=== PATIENT | male | born 1950 | race Caucasian/White ===

== ENCOUNTER 2024-07-02 23:09 | Inpatient (IN) | payer MEDICARE, BC ==
[~2024-07-02] VITALS: Ht 175.3 cm; Wt 83.9 kg
[2024-07-02 23:39] LABS: BASOPHILS % (AUTO) 0.4 % (0.0-2.0); EOSINOPHILS # (AUTO) 0.3 K/uL (0.0-0.7); EOSINOPHILS % (AUTO) 3.7 % (0.0-6.0); HEMATOCRIT 46 % (39-51); LYMPHOCYTES # (AUTO) 0.8 K/uL (0.8-4.8); LYMPHOCYTES % (AUTO) 9.3 % (20.0-44.0); MEAN CORPUSCULAR HEMOGLOBIN 33 PG (26.0-33.0); MEAN CORPUSCULAR HGB CONC 35 g/dl (31.0-36.0); MEAN CORPUSCULAR VOLUME 93 fL (80-96); MONOCYTES # (AUTO) 0.6 K/uL (0.1-1.30); MONOCYTES % (AUTO) 7.1 % (2.0-12.0); NEUTROPHILS # (AUTO) 6.5 K/uL (1.8-8.9); NEUTROPHILS % (AUTO) 79.5 % (43.0-81.0); PLATELET COUNT (AUTO) 198 K/uL (150-450); RED BLOOD CELL COUNT(AUTO) 4.91 MIL/uL (4.5-6.0); RED CELL DISTRIBUTION WIDTH 12.1 % (11.5-15.0); WHITE BLOOD COUNT (AUTO) 8.2 K/uL (4.3-11.0)
[2024-07-02] MEDS: IV NS 0.9% 1,000 ML BAG IV ONE (23:47)
[2024-07-02 23:49] LABS: CALCIUM, SERUM 8.5 mg/dL (8.5-10.1); CARBON DIOXIDE 25 mmol/L (21-32); CHLORIDE 95 mmol/L (98-107); CREATININE 1.1 mg/dL (0.6-1.3); GLUCOSE 103 mg/dL (74-106); POTASSIUM 3.8 mmol/L (3.5-5.1); SODIUM SERUM 129 mmol/L (136-145); UREA NITROGEN, BLOOD 14 mg/dL (7-18)
[2024-07-02 23:55] LABS: ALANINE AMINOTRANSFERASE 22 U/L (12-78); ALBUMIN 3.6 g/dL (3.4-5.0); ALKALINE PHOSPHATASE 50 U/L (46-116); ASPARTATE AMINOTRANSFERASE 24 U/L (15-37); BILIRUBIN,DIRECT 0.2 mg/dL (0.0-0.2); BILIRUBIN,TOTAL 0.9 mg/dL (0.2-1.0); TOTAL PROTEIN, SERUM 6.9 g/dL (6.4-8.2)
[2024-07-02] MEDS ORDERED: MINERAL OIL 133 ML (PYXIS) 1 EA ENEMA RC ONE (23:55)
[2024-07-02] MEDS ORDERED: LACTULOSE 10 G/15 ML UDC (PYXIS) ONE (23:56)
[2024-07-03] MEDS: MINERAL OIL 133 ML (PYXIS) 1 EA ENEMA RC ONE (00:11)
[2024-07-03] MEDS: LACTULOSE 10 G/15 ML UDC (PYXIS) PO ONE (00:11)
[2024-07-03] MEDS: POLYETHYLENE GLYCOL 3350 17 GM POWD.PACK ONE (03:31)
[2024-07-03] MEDS: POLYETHYLENE GLYCOL 3350 17 GM POWD.PACK PO ONE (03:31)
[2024-07-03] MEDS ORDERED: DIATR MEGLU/DIATRIZOATE SODIUM 120 ML BOTTLE (GASTROGRAPHIN) ONE (03:42)
[2024-07-03] MEDS ORDERED: MAGNESIUM HYDROXIDE 30 ML UDC PO PRN (04:00)
[2024-07-03] MEDS ORDERED: Z GUARD REMEDY 4 OZ OINT TP PRN (04:00)
[2024-07-03] MEDS ORDERED: ONDANSETRON HCL/PF 4 MG/2 ML VIAL IVP PRN (04:00)
[2024-07-03] MEDS ORDERED: ACETAMINOPHEN 650 MG/SUPP.RECT RC PRN (04:00)
[2024-07-03] MEDS ORDERED: MORPHINE SULFATE INJ 2 MG/ML DISP.SYRIN ONE (04:11)
[2024-07-03] MEDS: MORPHINE SULFATE INJ 2 MG/ML DISP.SYRIN IV PRN (04:18)
[2024-07-03] MEDS: ACETAMINOPHEN 325 MG TABLET PO PRN (05:27)
[2024-07-03] MEDS ORDERED: CARV6.25 PO (05:59)
[2024-07-03] MEDS ORDERED: DOXA4TAB2 PO (06:01)
[2024-07-03] MEDS ORDERED: TADA5TAB2 PO (06:02)
[2024-07-03] MEDS ORDERED: ROSU10TA29 PO (06:05)
[2024-07-03] MEDS ORDERED: LEVO100T PO (06:07)
[2024-07-03] MEDS ORDERED: OLME40TA12 PO (06:09)
[2024-07-03] MEDS ORDERED: ASPI-1169 PO (06:09)
[2024-07-03] MEDS ORDERED: BUDE10.2 INH (06:10)
[2024-07-03] MEDS ORDERED: CARB15DR EACHEYE (06:16)
[2024-07-03] MEDS ORDERED: [UNRECOGNIZED DRUG - OTHER] (06:17)
[2024-07-03] MEDS ORDERED: EVOL140P3 SQ (07:39)
[2024-07-03] MEDS ORDERED: MAGN500C16 PO (07:39)
[2024-07-03 07:54] VITALS: BP 138/77; TEMP 98.2; O2SAT 98
[2024-07-03] MEDS: PANTOPRAZOLE 40 MG TABLET.DR PO SCH (07:59)
[2024-07-03] MEDS: POLYETHYLENE GLYCOL 3350 17 GM POWD.PACK PO PRN (08:39)
[2024-07-03] MEDS: LACTULOSE 10 G/15 ML UDC (PYXIS) PO PRN (10:15)
[2024-07-03] MEDS: NA PHOS,M-B/NA PHOS,DI-BA 1 EA ENEMA RC PRN (11:51)
[2024-07-03] MEDS: LEVOTHYROXINE SODIUM 100 MCG TABLET PO SCH (15:55)
[2024-07-03] MEDS: CARVEDILOL 6.25 MG TABLET PO SCH (16:57)
[2024-07-03] MEDS: DOXAZOSIN MESYLATE (1 MG) 1 MG TABLET PO SCH (16:57)
[2024-07-03] MEDS: POLYVINYL ALCOHOL 15 ML BOTTLE EACHEYE SCH (17:23)
[2024-07-03 20:00] VITALS: BP 126/81; TEMP 98.1; O2SAT 96
[2024-07-03] MEDS: SENNOSIDES 8.6 MG TABLET PO SCH (22:00)
[2024-07-04 06:31] LABS: BASOPHILS % (AUTO) 0.6 % (0.0-2.0); EOSINOPHILS # (AUTO) 0.4 K/uL (0.0-0.7); EOSINOPHILS % (AUTO) 7.2 % (0.0-6.0); HEMATOCRIT 47 % (39-51); HEMOGLOBIN 16.2 g/dL (13.5-17.5); LYMPHOCYTES # (AUTO) 1.4 K/uL (0.8-4.8); LYMPHOCYTES % (AUTO) 25.9 % (20.0-44.0); MEAN CORPUSCULAR HEMOGLOBIN 33 PG (26.0-33.0); MEAN CORPUSCULAR HGB CONC 35 g/dl (31.0-36.0); MEAN CORPUSCULAR VOLUME 95 fL (80-96); MONOCYTES # (AUTO) 0.5 K/uL (0.1-1.30); MONOCYTES % (AUTO) 8.6 % (2.0-12.0); NEUTROPHILS # (AUTO) 3.1 K/uL (1.8-8.9); NEUTROPHILS % (AUTO) 57.7 % (43.0-81.0); PLATELET COUNT (AUTO) 212 K/uL (150-450); RED BLOOD CELL COUNT(AUTO) 4.94 MIL/uL (4.5-6.0); WHITE BLOOD COUNT (AUTO) 5.3 K/uL (4.3-11.0)
[2024-07-04 06:44] LABS: CALCIUM, SERUM 8.3 mg/dL (8.5-10.1); CARBON DIOXIDE 28 mmol/L (21-32); CHLORIDE 99 mmol/L (98-107); CREATININE 1.2 mg/dL (0.6-1.3); GLUCOSE 82 mg/dL (74-106); MAGNESIUM 2.4 mg/dL (1.8-2.4); PHOSPHORUS 2.6 mg/dL (2.5-4.9); POTASSIUM 3.9 mmol/L (3.5-5.1); SODIUM SERUM 136 mmol/L (136-145); UREA NITROGEN, BLOOD 11 mg/dL (7-18)
[2024-07-04] MEDS ORDERED: DOCU-141 PO (07:56)
[2024-07-04] MEDS ORDERED: POLY17PO29 PO (07:56)
[2024-07-04] MEDS: LEVOTHYROXINE SODIUM 100 MCG TABLET PO SCH (07:57)
[2024-07-04] MEDS: LOSARTAN POTASSIUM 50 MG TABLET PO SCH (09:00)
[2024-07-04] MEDS ORDERED: Medication Not On Formulary EA (Tadalafil (Cialis) 5 MG) PO SCH (09:00)
[2024-07-04] MEDS: ASPIRIN 81 MG TAB.CHEW PO SCH (09:00)
[2024-07-04] MEDS ORDERED: Medication Not On Formulary EA (Magnesium Oxide (Magnesium) 500 MG) PO SCH (09:00)
[2024-07-04] MEDS: ATORVASTATIN 40 MG TABLET PO SCH (09:00)
[2024-07-04] MEDS: FLUTICASONE/VILANTEROL 1 EACH BLST.W.DEV IH SCH (09:11)
[2024-07-11] MEDS ORDERED: Medication Not On Formulary EA (Evolocumab (Repatha Sureclick) 140 MG) SQ SCH (09:00)
== END 2024-07-04 11:00 | disposition home or self-care (01) | DRG 392 ==
LOC: ER 23:21 → MED 07-03 03:46
PROVIDERS: ADMIT Nurse Practitioner Acute Care; ATTEND Student in an Organized Health Care Education/Training Program
DX: K59.00 Constipation, unspecified (principal); E87.1 Hypo-osmolality and hyponatremia; E78.5 Hyperlipidemia, unspecified; I71.40 Abdominal aortic aneurysm, without rupture, unspecified; E03.9 Hypothyroidism, unspecified; Z79.890 Hormone replacement therapy; Z95.820 Peripheral vascular angioplasty status with implants and grafts; I10 Essential (primary) hypertension; E86.1 Hypovolemia; Z98.890 Other specified postprocedural states; Z91.048 Other nonmedicinal substance allergy status
CPT/HCPCS: 36415; 74021; 80048-TC; 80076-TC; 83735-TC; 84100-TC; 85025-TC; 97110-TC; 97116-TC; 97530-TC; G0378; J2270; J7030; Q9963